=== PATIENT | male | born 1985 | race Caucasian/White ===

== ENCOUNTER 2017-01-03 01:31 | Emergency (ER) | payer OTHER, MEDICARE ==
[~2017-01-03] VITALS: Ht 167.6 cm; Wt 78.9 kg
[~2017-01-03 01:31] MED LIST: ATIVAN0.5 MG PO
[2017-01-03 01:41] VITALS: BP 112/75
[2017-01-03] MEDS ORDERED: ATIVAN0.5 M1 PO (01:57)
--- NOTE | 2017-01-03 01:57 | ED GENERAL ADULT ---
History of Present Illness General Chief Complaint: General Adult Stated Complaint: " PANIC ATTACK [id number]" PER MOM Source: patient, family Exam Limitations: no limitations Vital Signs & Intake/Output Vital Signs & Intake/Output Vital Signs Date Time Temp Pulse Resp B/P Pulse O2 O2 Flow FiO2 Ox Delivery Rate 01/03 0141 97.9 71 18 112/75 98 Room Air Allergies Coded Allergies: nut - unspecified (UNKNOWN 05/10/16) Reconcile Medications Lorazepam (Ativan) 0.5 MG TABLET 1 TAB PO Q8P PRN ANXIETY Lorazepam (Ativan) 0.5 MG TAB 1-2 TAB PO Q6P PRN panic attack Triage Note: PT STATES HE HAD A PANIC ATTACK TONIGHT. HE TOOK HIS NIGHTLY SEROQUEL AND THAT DID NOT HELP. PT STATES "IM NOT ANXIOUS NOW BECAUSE IM IN A SAFE PLACE." PT WAS DIAGNOSED WITH ANXIETY 2 YEARS AGO. PT STATES "I AM TIRED OF THE ANXIETY AND FEELING OF FEAR EVERY NIGHT" Triage Nurses Notes Reviewed? yes HPI: Patient brought in by his mother for evaluation of panic attacks. Patient suffers from panic attacks for years and has an appointment to see his doctor on Monday morning. Mother states the panic attacks worse over the past week and they are worse at night and he has kept her up all night for the past 3 nights and she can't take anymore so she brings him in for evaluation. The patient is on Seroquel 150 mg at bedtime, propanolol 20 mg daily and Lexapro 5 mg pill daily. Patient states that he just feels that he cannot get comfortable. Patient denies any chest pain or chest tightness. There is no shortness of breath. There is no nausea or vomiting. There are no suicidal or homicidal ideations. Past History Travel History Traveled to [place] past 21 day No Medical History Any Pertinent Medical History? see below for history Neurological: NONE EENT: NONE Cardiovascular: NONE Respiratory: NONE Gastrointestinal: NONE Hepatic: NONE Renal: NONE Musculoskeletal: NONE Psychiatric: anxiety Endocrine: NONE Surgical History Surgical History: non-contributory Psychosocial History What is your primary language Turkmen Tobacco Use: Never used ETOH Use: denies use Illicit Drug Use: denies illicit drug use Family History Hx Contributory? No Review of Systems Review of Systems Constitutional: Reports: no symptoms. Respiratory: Reports: no symptoms. Cardiovascular: Reports: no symptoms. GI: Reports: no symptoms. Musculoskeletal: Reports: no symptoms. Neurological/Psychological: Reports: see HPI, anxiety. Immunologic/Allergic: Reports: no symptoms. Physical Exam Physical Exam General Appearance: well developed/nourished, alert, awake, anxious, mild distress Eyes: Bilateral: PERRL, EOMI. Neck: normal inspection, supple Respiratory: normal breath sounds, chest non-tender, no respiratory distress, lungs clear Cardiovascular: regular rate/rhythm, normal peripheral pulses Neurologic/Psych: no motor/sensory deficits, awake, alert, oriented x 3, normal gait, normal mood/affect Core Measures ACS in differential dx? No CVA/TIA Diagnosis: No Severe Sepsis Present: No Septic Shock Present: No Progress Differential Diagnoses I considered the following diagnoses in my evaluation of the patient: [ANXIETY] Plan of Care: Current Medications Sig/Jorge Start time Last Medication Dose Stop Time Status Admin Lorazepam 0.5 MG ONE ONE 01/03 200 UNVr (Ativan) 01/03 201 Initial ED EKG: none Departure Departure Disposition: HOME OR SELF CARE Condition: Stable Clinical Impression Primary Impression: Anxiety Referrals: NAMITA GALVEZ,MARLYN (PCP/Family) Additional Instructions: FOLLOW UP WITH YOUR DOCTOR Departure Forms: Customer Survey General Discharge Information Prescriptions: Current Visit Scripts Lorazepam (Ativan) 1 TAB PO Q8P PRN ANXIETY #6 TAB Critical Care Note Critical Care Note Critical Care Time: non-applicable
[2017-01-18] MEDS ORDERED: CLONAZEPAM0.5 M2 PO (09:12)
[2017-01-18] MEDS ORDERED: QUETIAPINE FUM200 M1 PO (09:13)
[2017-01-18] MEDS ORDERED: PROPRANOLOL HCL80 M2 PO (09:13)
== END 2017-01-03 02:06 ==
LOC: ERH 01:31
DX: F41.9 Anxiety disorder, unspecified (principal)

== ENCOUNTER → 2017-01-19 | Day surgery (SDC) | payer OTHER, MEDICARE ==
[~2017-01-19] VITALS: Ht 165.1 cm; Wt 79.4 kg
[~2017-01-19] MED LIST changes: +ATIVAN0.5 M1 PO; +CLONAZEPAM0.5 M2 PO; +PROPRANOLOL HCL80 M2 PO; +QUETIAPINE FUM200 M1 PO
--- NOTE | 2017-01-20 10:18 | Operative Report ---
Operative/Inv Procedure Report Surgery Date: 01/19/17 Name of Procedure: Debridement chronic pilonidal disease Fasciocutaneous flap coverage Pre-Operative Diagnosis: Chronic pilonidal disease recurrent buttock Post-Operative Diagnosis: Same Estimated Blood Loss: 50ml to 100ml Surgeon/Bar Host: ROSALIND QUEVEDO MD Anesthesia: general endotracheal tube Operative/Procedure Note Note: Patient was counseled Morrison proceeded the alternatives risks and expected outcomes as relates to his request for surgical intervention to treat chronic recurrent pilonidal disease of the buttock cleft. I discussed the risks which included but were not limited to infection bleeding pain and numbness disability and recurrence of the pilonidal disease. We talked about possibility of needing chronic wound care once again if surgery should fail to achieve desired result. Once agreed to informed consent was signed. The operating placed supine on a stretcher. Venodyne boots were placed and then general endotracheal anesthesia was established and he was put into the prone position and appropriately padded. The buttock was then prepped and draped in usual sterile fashion. IV fascia status flap was developed from the left buttock to maximize vascular inflow. And was pending completely debrided after the instillation of methylene blue and all blue stained tissues were excised. The remainder of the tissue appeared healthy.
== END ==
LOC: STS 01:19
DX: L05.01 Pilonidal cyst with abscess (principal); L98.499 Non-pressure chronic ulcer of skin of other sites with unspecified severity; E78.00 Pure hypercholesterolemia, unspecified; B36.0 Pityriasis versicolor; R74.8 Abnormal levels of other serum enzymes
CPT/HCPCS: 88304; J0690; J2250